=== PATIENT | male | born 1955 | race Caucasian/White ===

== ENCOUNTER 2020-05-12 11:04 | Inpatient (IN) | payer BC, OTHER ==
[~2020-05-12] VITALS: Ht 182.9 cm; Wt 94.8 kg
[2020-05-12 11:04] VITALS: BP_SYST 138
--- NOTE | 2020-05-12 11:04 | NUR ---
Placed in room 2. Placed on registered nurse cardiac, blood pressure machine and pulse oximeter. To gown for exam. Side rails up. Report given to KAREN Gomez.
--- NOTE | 2020-05-12 11:15 | NUR ---
DR. SINGH AT THE BEDSIDE
--- NOTE | 2020-05-12 11:17 | NUR ---
CAME IN WITH C/O CHEST PAIN FOR THE LAST 1 1/2 WEEKS. INCREASED STRESS AT HOME, MARITAL PROBLEMS, DIFFICULTY SLEEPING. REPORTS ENLARGED PROSTATE. NO CARDIAC HISTORY PER PT. WENT TO URGENT CARE THIS MORNING, RECEIVED A GI COCTAIL WHICH WAS INEFFECTIVE. NOW REPORTS 5/10 CHEST PAIN. AAOX4, V/S STABLE/ WILL CONTINUE TO MONITOR FOR SAFETY
[2020-05-12] MEDS ORDERED: ASPIRIN 325 MG TABLET PO ONE (11:45)
[2020-05-12] MEDS ORDERED: ENOXAPARIN SODIUM 100 MG/ML SYRINGE SUBCUT ONE (11:45)
[2020-05-12 11:52] LABS: BASOPHILS % (AUTO) 0.3 % (0.0-2.0); EOSINOPHILS % (AUTO) 0.8 % (0.0-4.0); HEMATOCRIT 42.6 % (36-54); HEMOGLOBIN 14.8 g/dL (14.0-18.0); LYMPHOCYTES # (AUTO) 1.2 K/uL (1.0-5.5); LYMPHOCYTES % (AUTO) 19.9 % (20.5-51.5); MEAN CORPUSCULAR HEMOGLOBIN 32 pg (27-31); MEAN CORPUSCULAR HGB CONC 35 % (32-36); MEAN CORPUSCULAR VOLUME 91 fL (79.0-98.0); MONOCYTES # (AUTO) 0.5 K/uL (0.0-1.0); MONOCYTES % (AUTO) 8.5 % (1.7-9.3); NEUTROPHILS # (AUTO) 4.3 K/uL (1.8-7.7); NEUTROPHILS % (AUTO) 70.5 % (40.0-70.0); PLATELET COUNT (AUTO) 251 K/uL (130-430); RED BLOOD CELL COUNT(AUTO) 4.71 MIL/uL (4.2-6.2); RED CELL DISTRIBUTION WIDTH 13.7 % (9.0-15.0); WHITE BLOOD COUNT (AUTO) 6.1 K/uL (4.8-10.8)
[2020-05-12] MEDS ORDERED: NITROGLYCERIN 1 INCH (GM) OINT. ONE (12:07)
[2020-05-12 12:09] LABS: CHOLESTEROL 306 mg/dL (<200); HDL CHOLESTEROL 66 mg/dL (>45); LDL CHOLESTEROL 134 mg/dL (<100); TRIGLYCERIDES 264 mg/dL (30-150)
[2020-05-12] MEDS ORDERED: MORPHINE 4 MG/ML INJ. SYRINGE ONE (12:09)
[2020-05-12] MEDS ORDERED: IOHEXOL 350 mgI/mL, 150 ML INFUS..BTL IV ONE (12:09)
[2020-05-12 12:18] LABS: PROTHROMBIN TIME 10.2 SECS (9.5-12.5)
[2020-05-12 12:28] LABS: CALCIUM 9.4 mg/dL (8.4-11.0); CREATININE 1.32 mg/dL (0.55-1.30); POTASSIUM 3.9 mmol/L (3.5-5.1)
[2020-05-12 12:33] LABS: TOTAL BILIRUBIN 0.5 mg/dL (0.0-1.0)
[2020-05-12] MEDS ORDERED: ASPI-859 PO (13:34)
[2020-05-12] MEDS ORDERED: TAMS-11 PO (13:35)
--- NOTE | 2020-05-12 13:54 | NUR ---
ADMIT ORDERS RECEIVED FROM DR. MURRAY. CALLED TELEMETRY FOR A BED, CHARGE NURSE TO CALL BACK
--- NOTE | 2020-05-12 14:05 | NUR ---
Patient will be admitted to care of DR. MURRAY. Admitted to TELEMETRY unit. Will go to room 114B. Belongings list completed. Complete and up to date summary report printed. SBAR report to be given at bedside with opportunity for questions.
--- NOTE | 2020-05-12 14:26 | NUR ---
ADMISSION NOTE Received patient from ER via josette, received report from Estefanía JONES. Patient admitted with diagnosis of Chest pain. Patient oriented to hospital routine, call light, toileting and safety-patient verbalized understanding.
[2020-05-12 14:30] VITALS: BP_SYST 127
--- NOTE | 2020-05-12 14:30 | NUR ---
CONSULTATION PAGED REASON FOR CONSULTATION:CHEST PAIN WAS CONSULT CALLED?Y PERSON WHO WAS NOTIFIED:MICKI CONSULTING PHYSICIAN:EDENILSON LOPES STUDENT NURSE SPECIALTY:CARDIO STUDENT NURSE PHONE NUMBER:[phone] ORDERING PHYSICIAN:GABRIELLA LOPES
[2020-05-12] MEDS ORDERED: ACETAMINOPHEN 325 MG TABLET PO PRN (16:00)
[2020-05-12] MEDS ORDERED: ONDANSETRON HCL 4 MG/2 ML VIAL IVP PRN (16:00)
[2020-05-12] MEDS ORDERED: LORazepam 2 MG/ML VIAL IVP PRN (16:00)
--- NOTE | 2020-05-12 16:00 | NUR ---
Note Pt's admission assessment was done and pt had tele unit attached on admission to floor. Pt was oriented to nursing routines/procedures. Pt's IV in left AC intact and patent. Pt ambulated to restroom with steady gait. No needs noted at this time. Pt oriented to call light.
--- NOTE | 2020-05-12 16:06 | NUR ---
CONSULT NEPHROLOGY [facility] DR NICK [phone] S/W [facility] OFFICE
[2020-05-12] MEDS ORDERED: ALFU10TA19 PO (16:56)
[2020-05-12] MEDS ORDERED: FINA5TAB3 PO (16:56)
[2020-05-12] MEDS ORDERED: FLUT16SP16 NS (16:56)
[2020-05-12] MEDS ORDERED: FAMOTIDINE 20 MG TABLET PO ONE (18:00)
[2020-05-12] MEDS: D5/0.45 NS 1,000 ML IV SCH (18:00)
[2020-05-12] MEDS ORDERED: BISMUTH SUBSALICYLATE 262 MG TAB.CHEW PO ONE (18:00)
--- NOTE | 2020-05-12 18:59 | NUR ---
Note Dr Solano on the floor at 1800 to assess pt. Pt denies any SOB/resp distress or severe chest pain/discomfort noted at this time. IV in left AC intact and patent infusing IVF's well. Pt was checked on q1' and PRN all shift for needs and care. Pt maintained with safety precautions all shift. Pt's bed in low position all shift. Bed alarm off as pt gets OOB to restroom with steady gait all shift. Call light within reach.
--- NOTE | 2020-05-12 19:10 | NUR ---
OPENING NOTE RECEIVE REPORT FROM MORNING SHIFT NURSE AT BEDSIDE. PATIENT AOX4. NO SIGNS OF RESPIRATORY DISTRESS NOTED. DENIES PAIN, CHEST PAIN AND DISCOMFORT. ON ROOM AIR, TOLERATING WELL. VITAL SIGNS TAKEN AND WILL BE RECORDED. IVF INFUSING WELL. CALL LIGHT WITHIN REACH, PATIENT WAS EDUCATED TO USE CALL LIGHT WHEN ASSISTANCE IS NEEDED. PATIENT ABLE TO VERBALIZED UNDERSTANDING. BED LOCKED AND IN LOWEST POSITION. PATIENT REFUSED BED ALARM, PT AMBULATORY WITH STEADY GAIT. OTHER SAFETY PRECAUTIONS IN PLACE. WILL CONTINUE TO MONITOR PATIENT.
[2020-05-12 20:00] VITALS: BP_SYST 117
[2020-05-12] MEDS: ATORVASTATIN 20 MG TABLET PO SCH (20:32)
[2020-05-12] MEDS: OMEGA-3/DHA/EPA/FISH OIL 1 GM CAPSULE PO SCH (20:32)
[2020-05-12] MEDS: FINASTERIDE 5 MG TABLET (PROSCAR) PO SCH (20:32)
[2020-05-12] MEDS: FLUTICASONE PROPIONATE 50 mCg/SPRAY 16 GM NS SCH (20:32)
--- NOTE | 2020-05-12 20:32 | NUR ---
MED PASS DUE MEDICATIONS GIVEN AT THIS TIME, PATIENT TOLERATED WELL. PATIENT WAS EDUCATED ON MEDICATIONS THAT WAS GIVEN FOR ITS PURPOSE, BENEFITS AND SIDE EFFECT. PATIENT ABLE TO VERBALIZED UNDERSTANDING. CALL LIGHT WITHIN REACH. IVF INFUSING WELL. SAFETY PRECAUTIONS IN PLACE. WILL CONTINUE TO MONITOR PATIENT
[2020-05-12] MEDS: TAMSULOSIN HCL 0.4 MG CAP PO SCH (20:35)
[2020-05-12] MEDS ORDERED: NON-FORMULARY MEDICATION (Alfuzosin Hcl 10 MG) PO SCH (21:00)
[2020-05-12] MEDS ORDERED: TAMSULOSIN HCL 0.4 MG CAP PO SCH (21:00)
--- NOTE | 2020-05-12 22:29 | NUR ---
PAGED DR. CRISTY Briones ON HIS PERSONAL PAGER @[phone]
--- NOTE | 2020-05-12 22:34 | NUR ---
PAGED: I PAGED DR. CRISTY Morales I SPOKE WITH PAVEL
--- NOTE | 2020-05-12 22:36 | NUR ---
DR. CRISTY Morales JUST CALLED BACK
--- NOTE | 2020-05-12 22:37 | NUR ---
SPOKE WITH MD/ COVID TEST CANCEL DR. MUNIZ MADE AWARE THAT DR. SINGH FROM ER DOCTOR ORDERED COVED TEST AT 1435 AND IT WAS NOT DONE. DR. MUNIZ VERBALIZED THAT ''PATIENT COMES IN FOR CHEST PAIN AND COVID TEST IS NOT NEEDED''. MD AWARE THAT PATIENT HAS NO RESPIRATORY PROBLEM AND S/S OF COVID WLL UPON ASSESSMENT. MD ORDERED TO CANCEL COVID TEST ORDER.
[2020-05-12] MEDS ORDERED: NITROGLYCERIN 1 INCH (GM) OINT. TP ONE (23:30)
[2020-05-12] MEDS ORDERED: MORPHINE 4 MG/ML INJ. SYRINGE IVP ONE (23:30)
--- NOTE | 2020-05-12 23:54 | NUR ---
VITAL SIGNS/ RN ROUNDS VITAL SIGNS TAKEN AND WILL BE RECORDED. NO SIGNS OF RESPIRATORY DISTRESS AND DISCOMFORT NOTED. BREATHING EVEN AND UNLABORED. ON ROOM AIR, TOLERATING WELL. IVF INFUSING WELL. CALL LIGHT WITHIN REACH. SAFETY PRECAUTIONS IN PLACE. WILL CONTINUE TO MONITOR PATIENT.
[2020-05-13] VITALS: BP_SYST 120
[2020-05-13] MEDS: D5/0.45 NS 1,000 ML IV SCH ×3 (02:00→14:37)
[2020-05-13 02:06] VITALS: BP_SYST 124
--- NOTE | 2020-05-13 02:30 | NUR ---
RN ROUNDS PATIENT ASLEEP AT THIS TIME. NO SIGNS OF RESPIRATORY DISTRESS AND DISCOMFORT NOTED. BREATHING EVEN AND UNLABORED. ON ROOM AIR TOLERATING WELL. CALL LIGHT WITHIN REACH. SAFETY PRECAUTIONS IN PLACE. WILL CONTINUE TO MONITOR PATIENT.
--- NOTE | 2020-05-13 04:20 | NUR ---
NEW IVF HUNG NEW IVF HUNG AT THIS TIME. PATIENT HAS NO SIGNS OF RESPIRATORY DISTRESS AND DISCOMFORT NOTED. BREATHING EVEN AND UN LABORED. ON ROOM AIR, TOLERATING WELL. CALL LIGHT WITHIN REACH. SAFETY PRECAUTIONS IN PLACE. WILL CONTINUE TO MONITOR PATIENT
[2020-05-13 06:39] LABS: BASOPHILS % (AUTO) 0.3 % (0.0-2.0); EOSINOPHILS # (AUTO) 0.1 K/uL (0.0-0.4); EOSINOPHILS % (AUTO) 1.2 % (0.0-4.0); HEMATOCRIT 39.2 % (36-54); HEMOGLOBIN 13.7 g/dL (14.0-18.0); LYMPHOCYTES # (AUTO) 1.2 K/uL (1.0-5.5); LYMPHOCYTES % (AUTO) 15.2 % (20.5-51.5); MEAN CORPUSCULAR HEMOGLOBIN 32 pg (27-31); MEAN CORPUSCULAR HGB CONC 35 % (32-36); MEAN CORPUSCULAR VOLUME 90 fL (79.0-98.0); MONOCYTES # (AUTO) 0.7 K/uL (0.0-1.0); MONOCYTES % (AUTO) 8.6 % (1.7-9.3); NEUTROPHILS # (AUTO) 5.8 K/uL (1.8-7.7); NEUTROPHILS % (AUTO) 74.7 % (40.0-70.0); PLATELET COUNT (AUTO) 228 K/uL (130-430); RED BLOOD CELL COUNT(AUTO) 4.34 MIL/uL (4.2-6.2); RED CELL DISTRIBUTION WIDTH 13.7 % (9.0-15.0); WHITE BLOOD COUNT (AUTO) 7.8 K/uL (4.8-10.8)
[2020-05-13 07:01] LABS: ALBUMIN 3.2 g/dL (3.4-4.8); CALCIUM 8.7 mg/dL (8.4-11.0); CREATININE 1.29 mg/dL (0.55-1.30); PHOSPHORUS 3.2 mg/dL (2.7-4.5); POTASSIUM 4.2 mmol/L (3.5-5.1); TOTAL BILIRUBIN 0.4 mg/dL (0.0-1.0)
--- NOTE | 2020-05-13 07:08 | NUR ---
CLOSING NOTE PATIENT AWAKE. NO SIGNS OF RESPIRATORY DISTRESS AND DISCOMFORT NOTED. DENIES SOB AND PAIN. BREATHING EVEN AND UNLABORED. ON ROOM AIR TOLERATING WELL. IVF INFUSING WELL, PATENCY NOTED. BED LOCKED AND IN LOWEST POSITION. SAFETY AND ISOLATION PRECAUTION IN PLACE. ALL NEEDS MET THROUGHOUT THE SHIFT. WILL CONTINUE TO MONITOR PATIENT UNTIL ENDORSE TO ONCOMING SHIFT NURSE FOR CONTINUITY OF CARE. Addendum: 05/13/20 at 0711 by Migdalia Savage RN CORRECTION: PATIENT NOT ON ISOLATION
[2020-05-13] MEDS: ASPIRIN 81 MG TABLET(ECOTRIN) PO SCH (08:34)
[2020-05-13] MEDS: FAMOTIDINE 20 MG TABLET PO SCH ×2 (08:34→20:51)
[2020-05-13] MEDS: OMEGA-3/DHA/EPA/FISH OIL 1 GM CAPSULE PO SCH ×2 (08:34→20:51)
[2020-05-13] MEDS: FLUTICASONE PROPIONATE 50 mCg/SPRAY 16 GM NS SCH ×2 (08:35→20:51)
--- NOTE | 2020-05-13 08:40 | NUR ---
Opening note/Medication patient resting in bed, a/ox4, denies pain, assessment complete, IV line is patent and infusing well, educated computer system validation specialist light system, plan of care, medications uses and potential side effects, he verbalized understanding and tolerated well, patient requesting PO allergy medication, will inform MD, no other needs at this time, bed in lowest position, two side rails up, call light within reach, fall and aspiration precautions in place.
[2020-05-13 09:05] VITALS: BP_SYST 114
[2020-05-13 11:33] VITALS: BP_SYST 136
--- NOTE | 2020-05-13 11:36 | NUR ---
Dr. Solano, Y rounds assessed patient, MD will order CTA chest with contrast, will follow up.
--- NOTE | 2020-05-13 13:57 | NUR ---
Dietitian Recommendations *Continue Cardiac diet. Low CHOL Low Fat 2gm Na diet. Please see Nutritional Assessment for details. FLY, RD
[2020-05-13] MEDS ORDERED: IOHEXOL 350 mgI/mL, 150 ML INFUS..BTL IV ONE (13:58)
--- NOTE | 2020-05-13 14:00 | NUR ---
Follow up CTA called Radiology, spoke with Yun, patient waiting on CTA for potential discharge today, will follow up as needed. Addendum: 05/13/20 at 1546 by Hank Garcia RN Third Follow up spoke with Yun. Addendum: 05/13/20 at 1653 by Hank Garcia RN Follow up CTA spoke with Genaro, he said that he will have Lazaro call me, informed Genaro that the patient has been waiting for CTA chest most of the day and Demian Connor is waiting for the results. Addendum: 05/13/20 at 1656 by Hank Garcia RN According to Lazaro, the CT scanner is down, please ask MD if he needs the scan done today or if it can wait until tomorrow, will follow up with Asia Connor
--- NOTE | 2020-05-13 16:57 | NUR ---
Paged Demian Connor to inquire if CTA chest can be done tomorrow morning. Addendum: 05/13/20 at 1720 by Hank Garcia RN Spoke with Demian Connor CTA chest with contrast can be done tomorrow morning, informed patient as well, he verbalized understanding.
--- NOTE | 2020-05-13 18:35 | NUR ---
Closing note patient resting in bed, awake, eating dinner, aspiration precautions in place, will endorse report to NOC shift nurse, bed in lowest position, two side rails up, call light within reach, fall precautions in place.
--- NOTE | 2020-05-13 19:30 | NUR ---
Initial Note: Received report from daniel RN. Patient is in bed, resting. No acute distress. Even, nonlabored breathing on room air. IV site is patent and intact, saline locked. Bed is at lowest position. Side rails up x2. Call light is with patient. Safety and fall precautions in place. Will continue plan of care.
[2020-05-13 20:00] VITALS: BP_SYST 119
[2020-05-13] MEDS: ATORVASTATIN 20 MG TABLET PO SCH (20:51)
[2020-05-13] MEDS: FINASTERIDE 5 MG TABLET (PROSCAR) PO SCH (20:51)
[2020-05-13] MEDS: TAMSULOSIN HCL 0.4 MG CAP PO SCH (20:52)
--- NOTE | 2020-05-13 22:00 | NUR ---
Rounds: Patient is resting in bed. No acute distress. Breathing is even, nonlabored on room air. Call light is with patient. Safety and fall precautions in place. Will continue monitoring.
[2020-05-14] VITALS: BP_SYST 127
--- NOTE | 2020-05-14 | NUR ---
Rounds: Patient is resting in bed. No s/s acute distress. Respirations are even, nonlabored on room air. Call light is with patient. Safety and fall precautions in place. Will continue to monitor.
--- NOTE | 2020-05-14 02:30 | NUR ---
Rounds: Patient is sleeping in bed. No signs of acute distress. Breathing is even, nonlabored on room air. Call light is with patient. Safety and fall precautions in place. Will continue monitoring.
--- NOTE | 2020-05-14 05:00 | NUR ---
Rounds: Patient in bed, sleeping. No acute distress. Even, nonlabored respirations on room air. Call light is with patient. Safety and fall precautions in place. Will continue monitoring.
[2020-05-14 06:50] LABS: BASOPHILS % (AUTO) 0.2 % (0.0-2.0); EOSINOPHILS # (AUTO) 0.1 K/uL (0.0-0.4); EOSINOPHILS % (AUTO) 1.9 % (0.0-4.0); HEMATOCRIT 41.4 % (36-54); HEMOGLOBIN 14.4 g/dL (14.0-18.0); LYMPHOCYTES # (AUTO) 1.4 K/uL (1.0-5.5); LYMPHOCYTES % (AUTO) 22.9 % (20.5-51.5); MEAN CORPUSCULAR HEMOGLOBIN 31 pg (27-31); MEAN CORPUSCULAR HGB CONC 35 % (32-36); MEAN CORPUSCULAR VOLUME 90 fL (79.0-98.0); MONOCYTES # (AUTO) 0.5 K/uL (0.0-1.0); MONOCYTES % (AUTO) 8.8 % (1.7-9.3); NEUTROPHILS % (AUTO) 66.2 % (40.0-70.0); PLATELET COUNT (AUTO) 236 K/uL (130-430); RED BLOOD CELL COUNT(AUTO) 4.57 MIL/uL (4.2-6.2); RED CELL DISTRIBUTION WIDTH 13.5 % (9.0-15.0); WHITE BLOOD COUNT (AUTO) 6.1 K/uL (4.8-10.8)
--- NOTE | 2020-05-14 07:01 | NUR ---
Closing Note: Patient is resting in bed. No acute distress. Even, nonlabored breathing on room air. IV site is saline locked, patent and intact. All needs met. Bed is locked at lowest position. Side rails up x2 Call light is with patient. Safety and fall precautions in place. Will endorse to dayshift RN.
[2020-05-14 07:04] LABS: CALCIUM 9.4 mg/dL (8.4-11.0); CREATININE 1.25 mg/dL (0.55-1.30)
--- NOTE | 2020-05-14 08:10 | NUR ---
Opening Notes Patient received able to follow commands and respond to questions. Patient on equipment monitor phototypesetting. Patient has a peripheral IV. Bathroom privileges allowed. Safety precautions enforced.
[2020-05-14] MEDS: TAMSULOSIN HCL 0.4 MG CAP PO SCH ×2 (09:00→09:15)
[2020-05-14] MEDS: OMEGA-3/DHA/EPA/FISH OIL 1 GM CAPSULE PO SCH (09:15)
[2020-05-14] MEDS: ASPIRIN 81 MG TABLET(ECOTRIN) PO SCH (09:16)
[2020-05-14] MEDS: FAMOTIDINE 20 MG TABLET PO SCH (09:16)
[2020-05-14] MEDS: FLUTICASONE PROPIONATE 50 mCg/SPRAY 16 GM NS SCH (09:24)
--- NOTE | 2020-05-14 12:00 | NUR ---
RN Rounds Patient resting in bed at this time. Patient in no signs of distress.
[2020-05-14 12:45] VITALS: BP_SYST 141
[2020-05-14 14:44] VITALS: BP_SYST 144
--- NOTE | 2020-05-14 16:45 | NUR ---
LATE ENTRY MY 3RD CALL TO THE CARDILOGIST DR Demian MUNIZ, RE: PT COMPLAINING OF CHEST PAIN, ATTENDING MD DR Anselmo MUNIZ DISCHARGED PT TO HOME BUT CHEST PAIN NOT RELIEVED AFTER STAYING 2 NIGHTS IN THIS HOSP. PT WANTED TO TALK TO THE DR Demian MUNIZ, THE DIESEL LUBE TECH.
[2020-05-14 16:46] VITALS: BP_SYST 141
[2020-05-14] MEDS ORDERED: TAMSULOSIN HCL 0.4 MG CAP PO SCH (21:00)
== END 2020-05-14 17:00 | disposition home or self-care (01) | DRG 313 ==
LOC: SED 11:04 → STU 13:50
PROVIDERS: ADMIT Preventive Medicine Preventive Medicine/Occupational Environmental Medicine; ATTEND Preventive Medicine Preventive Medicine/Occupational Environmental Medicine
DX: R07.89 Other chest pain (principal); N17.0 Acute kidney failure with tubular necrosis; N18.9 Chronic kidney disease, unspecified; Z51.5 Encounter for palliative care; Z66 Do not resuscitate; E78.2 Mixed hyperlipidemia; I10 Essential (primary) hypertension; I25.10 Atherosclerotic heart disease of native coronary artery without angina pectoris; I34.0 Nonrheumatic mitral (valve) insufficiency; K21.9 Gastro-esophageal reflux disease without esophagitis; N40.0 Benign prostatic hyperplasia without lower urinary tract symptoms; Z88.5 Allergy status to narcotic agent; Z79.899 Other long term (current) drug therapy
CPT/HCPCS: 36415; 71045; 71275; 80048; 80053; 80061; 83735-TC; 83880; 84100-TC; 84484; 85025; 85379; 85610-TC; 85730-TC; 93306; 96372; 96374; 99291; G0378; J1650; J2270; Q9967